=== PATIENT | male | born 1975 | race Caucasian/White ===

== ENCOUNTER 2019-06-30 03:44 | Emergency (ER) | payer BC ==
[2019-06-30] MEDS ORDERED: Acetaminophen/HYDROcodone 325-10 MG Tab PO ONE (03:45)
--- NOTE | 2019-06-30 03:58 | EDM.PDOC ---
ED HPI GENERAL MEDICAL PROBLEM - General Chief Complaint: Back Pain or Injury Stated Complaint: LOWER BACK PAIN Time Seen by Provider: 06/30/19 03:56 Source of Information: Reports: Patient History Limitations: Reports: No Limitations - History of Present Illness INITIAL COMMENTS - FREE TEXT/NARRATIVE: onset LBP going down right leg [employer]. was sitting watching movie. denies recent injury. workd bending lifting. Treatments [employer]: Reports: Acetaminophen Other Treatments [employer]: 1200 Tylenol 1000mg po Right Lower Back Pain Score (Numeric/FACES): 10 - Related Data Allergies Allergy/AdvReac Type Severity Reaction Status Date / Time codeine Allergy Severe Hives Verified 06/30/19 03:57 ibuprofen Allergy Airway Verified 06/30/19 03:57 Tightness Home Meds: Home Meds . [No Known Home Meds] 06/30/19 [History] ED ROS GENERAL - Review of Systems Review Of Systems: Comprehensive ROS is negative, except as noted in HPI. ED EXAM,LOWER BACK PAIN/INJURY - Physical Exam Exam: See Below Exam Limited By: No Limitations General Appearance: Alert, WD/WN, Mild Distress, Moderate Distress, Other (LBP) Ears: Hearing Grossly Normal Throat/Mouth: Normal Voice, No Airway Compromise Head: Atraumatic Neck: Non-Tender, Full Range of Motion Respiratory/Chest: No Respiratory Distress Cardiovascular: Regular Rate, Rhythm GI/Abdominal: Soft, Non-Tender Back Exam: Muscle Spasm, Paraspinal Tenderness, Other (L3-4-5-S1 with right radiculitis, gait limited to pain) Neurological: Alert, Normal Mood/Affect, No Motor/Sensory Deficits, Oriented x 3 Psychiatric: Flat Affect Skin Exam: Warm, Dry, Normal Color Lymphatic: No Adenopathy Course - Vital Signs Last Recorded V/S: Last Vital Signs Temp 36.6 C 06/30/19 03:49 Pulse 89 06/30/19 03:49 Resp 20 06/30/19 03:49 BP 148/92 H 06/30/19 03:49 Pulse Ox 98 06/30/19 03:49 - Orders/Labs/Meds Meds: Medications Discontinued Medications Generic Name Dose Route Start Last Admin Trade Name Freq PRN Reason Stop Dose Admin Orphenadrine Citrate 60 mg 06/30/19 03:55 06/30/19 04:05 Norflex IM 06/30/19 03:56 60 mg ONETIME ONE Administration - Re-Assessments/Exams Free Text/Narrative Re-Assessment/Exam: 06/30/19 05:15 re-exam; s/p IM norflex = much better Departure - Departure Time of Disposition: 05:15 Disposition: Home, Self-Care 01 Condition: Good Clinical Impression: Right lumbar radiculitis - Discharge Information Instructions: Muscle Strain, [id number] Forms: ED Department Discharge Additional Instructions: 1) no bending lifting straining next 4 to 5 days 2) try ice or heat to sore areas 3) see clinic Monday for possible MRI SCAN if not significantly improve rx given; flexeril 10mg tid prn spasms x 12 vicodin 5/325mg bid prn pain x 6 Sepsis Event Note - Evaluation Sepsis Screening Result: No Definite Risk - Focused Exam Vital Signs: Vital Signs Temp Pulse Resp BP Pulse Ox 06/30/19 03:49 36.6 C 89 20 148/92 H 98 Date Exam was Performed: 06/30/19 Time Exam was Performed: 05:15
[2019-06-30] MEDS ORDERED: Acetaminophen/HYDROcodone 325-10 MG Tab ONE (05:16)
== END 2019-06-30 05:20 | disposition home or self-care (01) ==
LOC: DL.ED 03:44
DX: M54.16 Radiculopathy, lumbar region (principal)
CPT/HCPCS: 96372; 99283; A9270; J2360